=== PATIENT | female | born 1980 | race Caucasian/White ===

== ENCOUNTER 2025-03-09 16:53 | Emergency (ER) | payer MEDICARE, MEDICAID ==
[~2025-03-09] VITALS: Ht 165.1 cm; Wt 98.0 kg
[2025-03-09 17:42] VITALS: O2SAT 97
[2025-03-09 18:05] LABS: GLUCOSE URINE NEGATIVE (NEGATIVE); KETONES URINE TRACE (NEGATIVE); LEUKOCYTE ESTERASE URINE NEGATIVE (NEGATIVE); NITRITE URINE NEGATIVE (NEGATIVE); OCCULT BLOOD URINE 2+ (NEGATIVE); PH URINE 5.5 (4.5-8.0); PROTEIN URINE NEGATIVE (NEGATIVE); SPECIFIC GRAVITY URINE 1.024 (1.005-1.030); UROBILINOGEN URINE 1.0 E.U./dL (0.2-1.0)
[2025-03-09 18:45] LABS: CLARITY URINE SL HAZY (CLEAR); COLOR URINE STRAW (YELLOW)
[2025-03-09 18:46] LABS: BACTERIA URINE TRACE; RBC URINE 0-2 /hpf (0-2); SQUAMOUS EPITHELIAL CELL URINE 1+ /lpf (RARE/1+); WBC URINE 0-2 /hpf (0-2)
[2025-03-09] MEDS: ACETAMINOPHEN 325MG TABLET PO ONE (19:18)
[2025-03-09] MEDS: KETOROLAC 15MG/ML VIAL IM ONE (20:34)
[2025-03-09 21:05] LABS: BASOPHILS % 0.6 % (0.0-2.0); EOSINOPHILS % 2.9 % (0.0-5.0); HEMATOCRIT. 36.7 % (36.0-48.0); HEMOGLOBIN. 11.5 g/dL (12.0-16.0); LYMPHOCYTES % 29.5 % (20.0-50.0); MEAN PLATELET VOLUME 8.4 fl (7.4-10.4); MONOCYTES % 4.1 % (2.0-8.0); NEUTROPHILS % 62.9 % (40.0-76.0); PLATELET 342 x1000/uL (130-400); RED BLOOD CELL COUNT 5.34 mill/uL (4.2-5.4); RED CELL DISTRIBUTION WIDTH 19.9 % (11.6-14.6)
[2025-03-09 21:06] LABS: ADD RBC MORPHOLOGY YES
[2025-03-09 21:19] LABS: PLATELET ESTIMATE NORMAL
[2025-03-09] MEDS ORDERED: IBUP-2030 MT (21:46)
[2025-03-09] MEDS ORDERED: DOXY100T2 MT (21:46)
[2025-03-09] MEDS: IBUPROFEN 800MG TABLET PO ONE (21:51)
[2025-03-09] MEDS: DOXYCYCLINE HYCLATE 100MG CAPSULE PO ONE (21:51)
[2025-03-09 21:52] LABS: CREATININE 1.0 mg/dL (0.6-1.0)
[2025-03-09 21:53] LABS: UREA NITROGEN BLOOD 18 mg/dL (9-23)
[2025-03-09 21:57] VITALS: BP 123/73; PULSE 75; RESP 16; TEMP 37.1; O2SAT 97
[2025-03-09 22:08] LABS: B-HCG QUANTITATIVE < 1 mIU/mL (<6)
[2025-03-09 22:16] LABS: HEPATITIS A AB IGM NEGATIVE (Negative); HEPATITIS B CORE AB IGM NEGATIVE (Negative)
[2025-03-09 22:17] LABS: HEPATITIS C AB NON REACTIVE (Neg) (Negative)
[2025-03-13 06:10] LABS: HSV TYPE 2 SPECIFIC AB IGG Non Reactive (Non Reactive)
== END 2025-03-09 21:58 | disposition home or self-care (01) ==
LOC: ER 16:53
DX: M79.7 Fibromyalgia (principal); N94.6 Dysmenorrhea, unspecified; Z20.2 Contact with and (suspected) exposure to infections with a predominantly sexual mode of transmission; Z90.49 Acquired absence of other specified parts of digestive tract; Z79.899 Other long term (current) drug therapy
CPT/HCPCS: 99285; 74176; 86592; 86695; 86696; 87491; 87591; 80048; 81003; 81025; 84702; 85025; 87340; 36415; 86709; 96372; 86705; J1885